=== PATIENT | female | born 1995 | race Caucasian/White ===

== ENCOUNTER 2019-04-26 06:03 | Inpatient (IN) | payer OTHER ==
[2019-04-21 11:25] VITALS: BMI 51.0
[2019-04-26] MEDS ORDERED: PROPOFOL 20 ML ONE ×4 (07:07→07:24)
[2019-04-26] MEDS ORDERED: MIDAZOLAM HCL 2 MG/2 ML SINGLE DOSE VIAL ONE ×3 (07:07→07:33)
[2019-04-26] MEDS ORDERED: SUCCINYLCHOLINE CHLORIDE 200 MG/10 ML VIAL ONE ×2 (07:07→07:24)
[2019-04-26] MEDS ORDERED: ePHEDrine SULFATE 50 MG/1 ML AMPULE ONE (07:08)
[2019-04-26] MEDS ORDERED: ROCURONIUM BROMIDE 50 MG/5 ML VIAL ONE ×4 (07:09→07:24)
[2019-04-26] MEDS ORDERED: fentaNYL CITRATE 250 MCG/5 ML VIAL ONE (07:23)
[2019-04-26] MEDS ORDERED: LIDOCAINE HCL/PF 2% SDV 5ML VIAL ONE (07:26)
--- NOTE | 2019-04-26 07:32 | HP ---
Admitting History and Physical - Admission Chief Complaint: Morbid obesity History Source: Patient Limitations to Obtaining History: No Limitations - Smoking History Smoking history: Former smoker Have you smoked in the past 12 months: Yes Aproximately how many cigarettes per day: 0 If you are a former smoker, when did you quit?: 2018 - Alcohol/Substance Use Hx Alcohol Use: Yes (SOCIAL) Home Medications - Allergies Allergies/Adverse Reactions: Allergies Allergy/AdvReac Type Severity Reaction Status Date / Time amoxicillin [Amoxicillin] AdvReac Severe Hives Verified 04/21/19 11:19 MOLT Allergy Severe Itching Uncoded 04/21/19 11:20 - Home Medications Home Medications: Ambulatory Orders Docusate Sodium [Colace -] 100 mg PO TID #90 capsule 04/26/19 Famotidine [Pepcid] 20 mg PO BID #60 tablet 04/26/19 Ondansetron [Zofran -] 8 mg PO Q6H PRN #30 tablet 04/26/19 Oxycodone HCl/Acetaminophen [Percocet 5-325 mg Tablet] 1 - 2 tab PO Q6H #28 tab MDD 4 04/26/19 Family Disease History - Family Disease History Family History: Unremarkable Review of Systems - Review of Systems Constitutional: denies: Chills, Fever Neck: reports: No Symptoms Cardiovascular: reports: No Symptoms Respiratory: reports: No Symptoms Gastrointestinal: reports: No Symptoms Neurological: reports: No Symptoms Pain Intensity: 0 Physical Examination Vital Signs: Vital Signs Temperature 98.5 F 04/26/19 07:04 Pulse Rate 82 04/26/19 07:04 Respiratory Rate 18 04/26/19 07:04 Blood Pressure 132/82 04/26/19 07:04 O2 Sat by Pulse Oximetry (%) Constitutional: Yes: Calm Neck: Yes: WNL Cardiovascular: Yes: WNL Respiratory: Yes: Regular Gastrointestinal: Yes: Soft, Abdomen, Obese Neurological: Yes: Alert, Oriented Problem List - Problems (1) Morbid obesity due to excess calories Code(s): E66.01 - MORBID (SEVERE) OBESITY DUE TO EXCESS CALORIES (2) BMI 50.0-59.9, adult Code(s): Z68.43 - BODY MASS INDEX (BMI) 50-59.9, ADULT Assessment/Plan Laparoscopic possible open vertical sleeve gastrectomy possible liver biopsy, upper endoscopy
[2019-04-26] MEDS ORDERED: DEXAMETHASONE SOD PHOSPHATE/PF 10 MG/ML SDV ONE (07:33)
[2019-04-26] MEDS ORDERED: BUPIVACAINE HCL/PF 2.5 MG/ML - 30 ML VIAL IJ ONE ×3 (07:33→07:52)
[2019-04-26] MEDS ORDERED: ONDANSETRON 4 MG/2 ML VIAL ONE ×2 (08:12→09:41)
[2019-04-26] MEDS ORDERED: DEXAMETHASONE SOD PHOSPHATE 4 MG/1 ML VIAL ONE (08:12)
[2019-04-26] MEDS ORDERED: CLINDAMYCIN PHOSPHATE 600 MG/4 ML VIAL ONE (08:12)
[2019-04-26] MEDS ORDERED: HYDROmorphone HCL/PF 1 MG/ML AMP ONE ×2 (09:09→09:24)
[2019-04-26] MEDS ORDERED: ONDANSETRON 4 MG/2 ML VIAL IVPUSH PRN (09:16)
[2019-04-26] MEDS ORDERED: oxyCODONE HCL 5 MG TABLET PO PRN ×2 (09:16)
[2019-04-26] MEDS ORDERED: GLYCOPYRROLATE 0.2 MG/1 ML VIAL ONE (09:24)
[2019-04-26] MEDS ORDERED: NEOSTIGMINE METHYLSULFATE 0.5 MG/ML - 10 ML MDV ONE (09:24)
[2019-04-26] MEDS ORDERED: FAMOTIDINE 20 MG/50 ML IVPB 20 MG/50 ML MG IVPB ONE (09:41)
[2019-04-26] MEDS ORDERED: METOCLOPRAMIDE HCL INJECTION 10 MG/2 ML VIAL ONE (09:41)
[2019-04-26] MEDS ORDERED: ACETAMINOPHEN INJECTION 100 ML IVPB ONE (09:41)
[2019-04-26] MEDS: METOCLOPRAMIDE HCL INJECTION 10 MG/2 ML VIAL IVPUSH SCH ×4 (09:47→21:31)
[2019-04-26] MEDS: ACETAMINOPHEN 1000 MG/100 ML VIAL (NON FORMULARY) IVPB ONE ×2 (09:49→13:09)
--- NOTE | 2019-04-26 09:55 | OP ---
Operative Note - Note: Operative Date: 04/26/19 Pre-Operative Diagnosis: Morbid obesity. BMI 51.1 Operation: Laparoscopic vertical sleeve gastrectomy Post-Operative Diagnosis: Same as Pre-op Surgeon: Salvador Jauregui Weigher Alloy: Sanjay Valadez Anesthesia: General Specimens Removed: Greater curvature of stomach Estimated Blood Loss (mls): 100 Drains & Tubes with Location: 36 fr Bougie Operative Report Dictated: Yes
[2019-04-26] MEDS ORDERED: FAMOTIDINE 20 MG PREMIXED IVPB IVPB ONE (10:05)
[2019-04-26 10:30] LABS: HEMOGLOBIN 13.4 GM/dl (10.7-15.3); MCH 28.2 pg (25.7-33.7); MCHC 33.3 g/dl (32.0-36.0); WHITE BLOOD COUNT 13.1 K/mm3 (4.0-10.8)
[2019-04-26] MEDS: KETOROLAC TROMETHAMINE 30 MG/1 ML VIAL IVPUSH ONE ×2 (10:30→13:10)
[2019-04-26 10:32] LABS: HEMATOCRIT 40.2 % (32.4-45.2); MEAN CELL VOLUME 84.6 fl (80-96); MEAN PLT VOLUME 9.2 fl (7.5-11.1); PLATELET COUNT 423 K/MM3 (134-434); RBC 4.75 M/mm3 (3.60-5.2); RDW 12.4 % (11.6-15.6)
[2019-04-26 10:33] LABS: BILIRUBIN,TOTAL 0.9 mg/dl (0.2-1); CALCIUM 9.1 mg/dl (8.5-10); CREATININE 0.6 mg/dl (0.55-1.3); POTASSIUM 3.9 mmol/L (3.5-5.1); TOT PROT 7.1 g/dl (6.4-8.2)
[2019-04-26] MEDS: SODIUM CHLORIDE 1,000 ML IV SCH (13:09)
[2019-04-26] MEDS: LACTATED RINGERS SOLUTION 1,000 ML IV SCH (13:09)
[2019-04-26] MEDS: ONDANSETRON 4 MG/2 ML VIAL IVPUSH SCH ×3 (14:40→21:31)
--- NOTE | 2019-04-26 14:45 | SPEC ---
DATE OF OPERATION: 04/26/2019 SURGEON: Ivett Jauregui MD TIE BUYER: Sanjay Valadez MD PREOPERATIVE DIAGNOSIS: 1. Morbid obesity. 2. Body mass index of 51.1. POSTOPERATIVE DIAGNOSIS: 1. Morbid obesity. 2. Body mass index of 51.1. PROCEDURE: Laparoscopic vertical sleeve gastrectomy. SPECIMENS: Greater curvature of the stomach. ESTIMATED BLOOD LOSS: 100 mL. DRAINS: None. ANESTHESIA: GET, bougie size [address] OF SURGERY: [facility]. REASON FOR PROCEDURE: This is a 23-year-old female, presents for weight loss options. After describing different options, she decided to proceed with laparoscopic, possible open, vertical sleeve gastrectomy, possible liver biopsy and upper endoscopy. RISKS AND BENEFITS: After describing the different options for weight loss management, the patient decided to proceed with a laparoscopic, possible open vertical sleeve gastrectomy. The patient was seen by the respective subspecialties and cleared for surgery. The risks and benefits of the procedure were explained. These included bleeding, infection, hernia, PR, DVT, PE, injury to surrounding structures including the liver, colon, bowel, spleen, esophagus, vessel injury, nerve injury, weight regain, gastric leak, staple line leak, sleeve leak, obstruction, vitamin deficiency, hair loss, and as some of the possible complications. The patient understood and signed informed consent. DESCRIPTION OF PROCEDURE: The patient was placed supine on the operating room table. The patient underwent general endotracheal intubation. The arms were brought out at 90 degrees and secured. A foot board was placed, and the legs were secured laterally with padding. The abdomen was prepped and draped in the usual sterile fashion. A timeout was performed. An incision was made in the left upper quadrant, and a Veress needle inserted. Pneumoperitoneum was established. Subsequently, the Veress needle was removed, and a 5-mm trocar was placed under direct visualization with the laparoscope. The laparoscopic camera was inserted, and inspection of the abdominal cavity was performed. An incision was made in the supraumbilical region, and a 15-mm trocar placed under direct visualization. A 5-mm trocar was then placed in the right upper quadrant, and a 5-mm trocar placed below the left subcostal margin. A stab wound was made in the subxiphoid area, and a Ewa clamp inserted and removed to dilate the tract. A Mady liver retractor was inserted. The post was secured at the bedside by the nursing staff. The patient was placed in steep reverse Trendelenburg position. The Mady liver retractor was used to secure the liver towards the anterior abdominal wall. The pylorus was identified and 6 cm proximal to it, the lesser sac was entered using the Ligasure device. All lateral attachments to the greater curvature of the stomach including the short gastric vessels were ligated using the Ligasure device toward the gastrosplenic and gastrophrenic ligaments. Once this was done in its entirety, it was confirmed that all tubes within the nasal or oropharyngeal cavity including a temperature probe were removed by Anesthesia. The bougie was then inserted by Anesthesia. Transection of the stomach was then begun staying adjacent to the bougie but away from the angularis. Transection of the stomach was performed near the portion of the stomach where the lesser sac was entered. Two laparoscopic Endo-CHRIS black loads were used at this location. Laparoscopic Endo-CHRIS purple loads were then used for the remainder of the transection until the greater curvature of the stomach was fully transected. This was done staying close to the bougie. Care was taken to stay away from the angle of His cephalad. The staple line was then inspected. Hemostasis was identified. A leak test was then performed. The stomach was clamped distally to the staple line. Irrigation solution was placed in the left upper quadrant, and air insufflated by Anesthesia into the sleeve. No leaks were identified, and no obstruction was identified. This was done throughout the entirety of the staple line. The stomach was suctioned and the bougie removed fully intact under direct visualization. At this point, the irrigation solution was suctioned, and again hemostasis noted. The 15-mm supraumbilical trocar was then removed, and the specimen removed from the site using a sponge stick sullivan. A Giuseppe Paris device was then used to close the fascia with a 0 Vicryl suture at this site. Again, hemostasis was noted. The Mady liver retractor was then removed under direct visualization. Pneumoperitoneum was desufflated. Hemostasis was noted at all incision sites, and Marcaine was injected at all incision sites. A 3-0 Vicryl suture was used to close the deep subcutaneous tissue at the 15-mm incision site. All incision sites were closed using 4-0 Biosyn. Sterile dressings were applied. The patient tolerated the procedure well, and was transferred to the recovery room in stable condition. IVETT JAUREGUI M.D. CHRISTEL/[id number]
[2019-04-26] MEDS: ACETAMINOPHEN 1000 MG/100 ML VIAL (NON FORMULARY) IVPB SCH ×2 (16:42→21:30)
--- NOTE | 2019-04-26 18:02 | CONSULT ---
Consult Consult Specialty:: IM Reason for Consultation:: post-op medical management - Alcohol/Substance Use Hx Alcohol Use: Yes (SOCIAL) - Smoking History Smoking history: Former smoker Have you smoked in the past 12 months: Yes Aproximately how many cigarettes per day: 0 If you are a former smoker, when did you quit?: 2018 Home Medications - Allergies Allergies/Adverse Reactions: Allergies Allergy/AdvReac Type Severity Reaction Status Date / Time amoxicillin [Amoxicillin] AdvReac Severe Hives Verified 04/21/19 11:19 MOLT Allergy Severe Itching Uncoded 04/21/19 11:20 - Home Medications Home Medications: Ambulatory Orders Docusate Sodium [Colace -] 100 mg PO TID #90 capsule 04/26/19 Famotidine [Pepcid] 20 mg PO BID #60 tablet 04/26/19 Ondansetron [Zofran -] 8 mg PO Q6H PRN #30 tablet 04/26/19 Oxycodone HCl/Acetaminophen [Percocet 5-325 mg Tablet] 1 - 2 tab PO Q6H #28 tab MDD 4 04/26/19 Family Disease History - Family Disease History Family History: Unremarkable Review of Systems - Review of Systems Constitutional: reports: No Symptoms Eyes: reports: No Symptoms HENT: reports: No Symptoms Neck: reports: No Symptoms Cardiovascular: reports: No Symptoms Respiratory: reports: No Symptoms Gastrointestinal: reports: Bloating Genitourinary: reports: No Symptoms Musculoskeletal: reports: No Symptoms Integumentary: reports: No Symptoms Neurological: reports: No Symptoms Endocrine: reports: No Symptoms Hematology/Lymphatic: reports: No Symptoms Psychiatric: reports: No Symptoms Pain Intensity: 5 Physical Exam Vital Signs: Vital Signs Temperature 98.1 F 04/26/19 13:51 Pulse Rate 82 04/26/19 13:51 Respiratory Rate 18 04/26/19 13:51 Blood Pressure 135/83 04/26/19 13:51 O2 Sat by Pulse Oximetry (%) 98 04/26/19 11:05 Constitutional: Yes: Well Nourished, No Distress Eyes: Yes: WNL HENT: Yes: WNL Neck: Yes: WNL Cardiovascular: Yes: WNL Respiratory: Yes: WNL Gastrointestinal: Yes: WNL, Abdomen, Obese ...Rectal Exam: Yes: WNL Renal/: Yes: WNL Musculoskeletal: Yes: WNL Extremities: Yes: WNL Edema: No Integumentary: Yes: WNL Neurological: Yes: WNL ...Motor Strength: WNL Psychiatric: Yes: WNL Labs: CBC, BMP 04/26/19 10:00 04/26/19 10:00 Assessment/Plan 23 yo S/P Laparoscopic vertical sleeve gastrectomy POD #0. pain management. incentive spirometry -blood work reviewed. reactive leucocytosis and hyperglycemia noted: will monitor. -NPO, Ice chips allowed. -GI, DVT prophylaixs. SCD's, AMANDA's, lovenox. -cont zofran for nausea. -for GI series in AM -Pt should me medically stable for DC in AM -
[2019-04-26] MEDS: HYDROmorphone HCL CARPU-JECT 1 MG/1 ML DISP.SYRIN IVPB PRN (19:03)
[2019-04-26] MEDS: ENOXAPARIN NA (PORCINE) 40 MG/0.4 ML DISP.SYRIN SQ SCH (21:30)
[2019-04-26] MEDS: FAMOTIDINE 20 MG/50 ML IVPB 20 MG/50 ML MG IVPB SCH (21:31)
[2019-04-27] MEDS: ONDANSETRON 4 MG/2 ML VIAL IVPUSH SCH ×3 (02:26→10:02)
[2019-04-27] MEDS: HYDROmorphone HCL CARPU-JECT 1 MG/1 ML DISP.SYRIN IVPB PRN ×2 (02:26→08:26)
[2019-04-27] MEDS: METOCLOPRAMIDE HCL INJECTION 10 MG/2 ML VIAL IVPUSH SCH ×2 (03:25→10:01)
[2019-04-27] MEDS: ACETAMINOPHEN 1000 MG/100 ML VIAL (NON FORMULARY) IVPB SCH (03:25)
[2019-04-27 07:45] LABS: HEMATOCRIT 37.9 % (32.4-45.2); HEMOGLOBIN 12.7 GM/dl (10.7-15.3); MCH 28.3 pg (25.7-33.7); MCHC 33.6 g/dl (32.0-36.0); MEAN CELL VOLUME 84.4 fl (80-96); MEAN PLT VOLUME 9.7 fl (7.5-11.1); PLATELET COUNT 423 K/MM3 (134-434); RBC 4.49 M/mm3 (3.60-5.2); RDW 12.1 % (11.6-15.6); WHITE BLOOD COUNT 15.3 K/mm3 (4.0-10.8)
[2019-04-27 08:48] LABS: ALBUMIN 3.9 g/dl (3.4-5.0); BILIRUBIN,TOTAL 0.9 mg/dl (0.2-1); CREATININE 0.5 mg/dl (0.55-1.3); POTASSIUM 3.9 mmol/L (3.5-5.1); TOT PROT 6.9 g/dl (6.4-8.2)
[2019-04-27] MEDS: ENOXAPARIN NA (PORCINE) 40 MG/0.4 ML DISP.SYRIN SQ SCH (10:01)
[2019-04-27] MEDS: FAMOTIDINE 20 MG/50 ML IVPB 20 MG/50 ML MG IVPB SCH (10:01)
[2019-04-27] MEDS: LACTATED RINGERS SOLUTION 1,000 ML IV SCH (10:03)
[2019-04-27] MEDS: SODIUM CHLORIDE 1,000 ML IV SCH (10:03)
--- NOTE | 2019-04-27 10:58 | PN ---
Progress Note, Physician Chief Complaint: 23 yo S/P Laparoscopic vertical sleeve gastrectomy POD #1 denies chest pain, palpitations, nausea, vomiting, diarrhea. - Current Medication List Current Medications: Active Medications Enoxaparin Sodium (Lovenox -) 40 mg SQ BID [facility] Last Admin: 04/27/19 10:01 Dose: 40 mg Fentanyl (Sublimaze Injection -) 50 mcg IVPUSH [id number] PRN PRN Reason: PAIN-PACU ORDER X 4 DOSES ONLY Last Admin: 04/26/19 10:13 Dose: 50 mcg Hydromorphone HCl (Dilaudid Injection -) 1 mg IVPB Q3H PRN PRN Reason: PAIN LEVEL 4 - 6 Last Admin: 04/27/19 08:26 Dose: 1 mg Lactated Ringer's (Lactated Ringers Solution) 1,000 mls @ 75 mls/hr IV ASDIR [facility] Last Admin: 04/27/19 10:03 Dose: 75 mls/hr Famotidine/Sodium Chloride (Pepcid 20 Mg Premixed Ivpb -) 20 mg in 50 mls @ 100 mls/hr IVPB BID [facility] Last Admin: 04/27/19 10:01 Dose: 100 mls/hr Sodium Chloride (Normal Saline -) 1,000 mls @ 150 mls/hr IV ASDIR [facility] Last Admin: 04/27/19 10:03 Dose: 150 mls/hr Metoclopramide HCl (Reglan Injection -) 10 mg IVPUSH Q6H [facility] Last Admin: 04/27/19 10:01 Dose: 10 mg Ondansetron HCl (Zofran Injection) 4 mg IVPUSH Q6H PRN PRN Reason: NAUSEA AND/OR VOMITING Ondansetron HCl (Zofran Injection) 4 mg IVPUSH Q4H [facility] Last Admin: 04/27/19 10:02 Dose: 4 mg - Objective Vital Signs: Vital Signs Temperature 98.7 F 04/27/19 09:56 Pulse Rate 79 04/27/19 09:56 Respiratory Rate 19 04/27/19 09:56 Blood Pressure 133/66 04/27/19 09:56 O2 Sat by Pulse Oximetry (%) 99 04/27/19 09:56 Constitutional: Yes: Well Nourished, Obese Eyes: Yes: WNL HENT: Yes: WNL Neck: Yes: WNL Cardiovascular: Yes: WNL Respiratory: Yes: WNL Gastrointestinal: Yes: WNL Genitourinary: Yes: WNL Musculoskeletal: Yes: WNL Extremities: Yes: WNL Edema: No Peripheral Pulses WNL: Yes Integumentary: Yes: WNL Wound/Incision: Yes: Clean/Dry, Well Approximated Neurological: Yes: WNL ...Motor Strength: WNL Psychiatric: Yes: WNL Labs: CBC, BMP 04/27/19 07:09 04/27/19 07:09 Assessment/Plan 23 yo ladoscar S/P Laparoscopic vertical sleeve gastrectomy POD #1. pain management. incentive spirometry -blood work reviewed. reactive leucocytosis and hyperglycemia noted: will monitor. -GI, DVT prophylaixs. SCD's, AMANDA's, lovenox. -cont zofran for nausea. -for GI series today. -Pt is medically stable for DC home later today after GI series -
[2019-04-27] MEDS ORDERED: oxyCODONE HCL 5 MG TABLET PO PRN (13:22)
--- NOTE | 2019-04-27 13:23 | PN ---
Progress Note (short form) - Note Progress Note: POD 1 Pain controlled No nausea Vital Signs Period Temp Pulse Resp BP Sys/Sifuentes Pulse Ox Last 24 Hr 97.4 F-98.7 F 60-82 18-19 120-135/43-83 92-100 Abd soft CBC,CMP WBC 15.3 K/mm3 (4.0-10.8) H 04/27/19 07:09 RBC 4.49 M/mm3 (3.60-5.2) 04/27/19 07:09 Hgb 12.7 GM/dl (10.7-15.3) 04/27/19 07:09 Hct 37.9 % (32.4-45.2) 04/27/19 07:09 MCV 84.4 fl (80-96) 04/27/19 07:09 MCH 28.3 pg (25.7-33.7) 04/27/19 07:09 MCHC 33.6 g/dl (32.0-36.0) 04/27/19 07:09 RDW 12.1 % (11.6-15.6) 04/27/19 07:09 Plt Count 423 K/MM3 (134-434) 04/27/19 07:09 MPV 9.7 fl (7.5-11.1) 04/27/19 07:09 Sodium 137 mmol/L (136-145) 04/27/19 07:09 Potassium 3.9 mmol/L (3.5-5.1) 04/27/19 07:09 Chloride 104 mmol/L (98-107) 04/27/19 07:09 Carbon Dioxide 25 mmol/L (21-32) 04/27/19 07:09 Anion Gap 8 MMOL/L (8-16) 04/27/19 07:09 BUN 9.0 mg/dl (7-18) 04/27/19 07:09 Creatinine 0.5 mg/dl (0.55-1.3) L 04/27/19 07:09 Est GFR (CKD-EPI)AfAm 160.35 04/27/19 07:09 Est GFR (CKD-EPI)NonAf 138.35 04/27/19 07:09 Random Glucose 94 mg/dl (74-106) 04/27/19 07:09 Calcium 9.0 mg/dl (8.5-10) 04/27/19 07:09 Total Bilirubin 0.9 mg/dl (0.2-1) 04/27/19 07:09 AST 20 U/L (15-37) 04/27/19 07:09 ALT 28 U/L (13-61) 04/27/19 07:09 Alkaline Phosphatase 48 U/L (45-117) 04/27/19 07:09 Total Protein 6.9 g/dl (6.4-8.2) 04/27/19 07:09 Albumin 3.9 g/dl (3.4-5.0) 04/27/19 07:09 UGI: no leak/obstruction Clears Discharge home Problem List - Problems (1) Morbid obesity due to excess calories Code(s): E66.01 - MORBID (SEVERE) OBESITY DUE TO EXCESS CALORIES (2) BMI 50.0-59.9, adult Code(s): Z68.43 - BODY MASS INDEX (BMI) 50-59.9, ADULT
[2019-04-27] MEDS ORDERED: SODIUM CHLORIDE 1,000 ML IV SCH (13:30)
[2019-04-27 14:14] VITALS: BP 147/88; PULSE 80; TEMP 98.1
--- NOTE | 2019-04-29 10:48 | PATH ---
Surgical Pathology Report Patient Name: LIZET DUMONT Med. Rec. #: [id number] /Age/Gender: 1995 (Age: 23) / F Account: [id number] Location: [facility] MED-SURG Taken: 04/26/2019 Received: 04/26/2019 Reported: 04/29/2019 Physicians: Salvador Jauregui M.D. Specimen(s) Received GREATER CURVATURE OF STOMACH Clinical History Morbid obesity Final Diagnosis GREATER CURVATURE OF STOMACH, LAPAROSCOPIC GASTRIC SLEEVE EXCISION: PORTION OF STOMACH SHOWING MILD CHRONIC MUCOSAL INFLAMMATION. IMMUNOSTAIN IS NEGATIVE FOR H. PYLORI ORGANISMS. Electronically Signed Nusrat Plunkett M.D. Gross Description Received in formalin, labeled "greater curvature of stomach," is a 86 gram, 19.5 x 3.4 x 3.0 cm. portion of stomach with a stapled margin of resection. The serosa is patrick-mcdaniel with minimal attached fat. The mucosa is patrick-pink with normal folds. No mucosal masses are identified. Wharfmaster sections are submitted in one cassette. /04/27/2019 [facility]/04/27/2019
== END 2019-04-27 14:27 | disposition home or self-care (01) | DRG 403 ==
LOC: FM/S 06:03
PROVIDERS: ADMIT Surgery; ATTEND Surgery
PROC: 0DB64Z3 Excision of Stomach, Percutaneous Endoscopic Approach, Vertical (ICD-10-PCS; principal; 2019-04-26 08:28)
DX: E66.01 Morbid (severe) obesity due to excess calories (principal); Z68.43 Body mass index [BMI] 50.0-59.9, adult; D72.829 Elevated white blood cell count, unspecified; R73.9 Hyperglycemia, unspecified
CPT/HCPCS: 36415; 74241-TC-FY; 80053; 81025; 85027; 87081; 88305-TC; 94760; J0131; J7030

== ENCOUNTER 2022-05-30 17:05 | Emergency (ER) | payer OTHER ==
[2022-05-30 17:15] VITALS: BP 133/89; PULSE 87; RESP 18; TEMP 98; BMI 32.4
[2022-05-30] MEDS ORDERED: SODIUM CHLORIDE 0.9% 500 ML INFUS.BAG IV ONE (17:39)
[2022-05-30 18:16] LABS: HEMATOCRIT 39.2 % (32.4-45.2); MCH 30.7 pg (25.7-33.7); MCHC 35.7 g/dl (32.0-36.0); MEAN CELL VOLUME 86.1 fl (80-96); PLATELET COUNT 304.3 10^3/uL (134-434); RBC 4.55 10^6/uL (3.60-5.2); RDW 13.5 % (11.6-15.6); WHITE BLOOD COUNT 9.8 10^3/uL (4.0-10.8)
[2022-05-30 18:35] LABS: CALCIUM 9.5 mg/dl (8.5-10); CREATININE 0.5 mg/dl (0.55-1.3); PHOSPHOROUS 4.3 mg/dl (2.5-4.9); TOT PROT 7.6 g/dl (6.4-8.2)
[2022-05-30 18:36] LABS: INR 1.11 (0.83-1.09); PROTHROMBIN TIME (PATIENT) 12.8 SEC (9.7-13.0)
[2022-05-30 18:45] LABS: PLATELET ESTIMATE ADEQUATE
== END 2022-05-30 19:33 | disposition home or self-care (01) ==
LOC: FER 17:05
DX: R19.7 Diarrhea, unspecified (principal); R10.9 Unspecified abdominal pain
CPT/HCPCS: 36415; 80053; 81003; 81015; 83690; 83735; 84100; 85025; 85610; 86850; 86870; 86900; 86901; 86902; 87086; 87186; 99283-25